=== PATIENT | male | born 1990 | race Caucasian/White ===

== ENCOUNTER → 2016-08-04 | Outpatient (CLI) | payer OTHER ==
[~2016-08-04] MED LIST: GADOBUTROL 10 ML VIAL IVP ONE
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
== END ==
LOC: FIMAGING 14:27
PROVIDERS: ATTEND Psychiatry & Neurology Neurology
DX: H53.47 Heteronymous bilateral field defects (principal); E34.8 Other specified endocrine disorders
CPT/HCPCS: A9585